=== PATIENT | male | born 1995 | race Caucasian/White ===

== ENCOUNTER 2017-12-07 20:16 | Emergency (ER) | payer SELFPAY ==
[~2017-12-07] VITALS: Ht 175.3 cm; Wt 66.2 kg
[2017-12-07 20:24] VITALS: Ht 175.3 cm; Wt 66.2 kg
[2017-12-07 22:07] VITALS: BP 109/71
== END 2017-12-07 22:07 | disposition home or self-care (01) ==
LOC: ED 20:16
DX: J45.901 Unspecified asthma with (acute) exacerbation (principal); Z91.010 Allergy to peanuts
CPT/HCPCS: J3535; J7512; J7620; Q0092

== ENCOUNTER 2018-02-02 07:08 | Emergency (ER) | payer MEDICAID ==
[~2018-02-02] VITALS: Ht 172.7 cm; Wt 66.2 kg
[2018-02-02 07:13] VITALS: Ht 172.7 cm; Wt 66.2 kg
[2018-02-02 09:14] VITALS: BP 111/76
== END 2018-02-02 09:14 | disposition home or self-care (01) ==
LOC: ED 07:08
DX: J45.901 Unspecified asthma with (acute) exacerbation (principal); Z91.010 Allergy to peanuts
CPT/HCPCS: J7512; J7613

== ENCOUNTER 2018-02-12 21:37 | Emergency (ER) | payer MEDICAID ==
[~2018-02-12] VITALS: Ht 172.7 cm; Wt 67.6 kg
[2018-02-12 22:38] VITALS: BP 122/62
== END 2018-02-13 00:38 | disposition left against medical advice (07) ==
LOC: ED 21:37
DX: Z53.21 Procedure and treatment not carried out due to patient leaving prior to being seen by health care provider (principal)

== ENCOUNTER 2018-03-31 10:39 | Emergency (ER) | payer SELFPAY ==
[~2018-03-31] VITALS: Ht 175.3 cm; Wt 64.4 kg
[2018-03-31 10:43] VITALS: Ht 175.3 cm; Wt 64.4 kg
[2018-03-31 13:21] VITALS: BP 100/68
== END 2018-03-31 13:21 | disposition home or self-care (01) ==
LOC: ED 10:39
DX: J45.901 Unspecified asthma with (acute) exacerbation (principal); F17.210 Nicotine dependence, cigarettes, uncomplicated; Z91.010 Allergy to peanuts; Z90.89 Acquired absence of other organs
CPT/HCPCS: 99406; J0171; J7512; J7613; J7644